=== PATIENT | female | born 2000 | race Caucasian/White ===

== ENCOUNTER 2018-10-18 18:46 | Outpatient (REF) | payer MEDICAID, SELFPAY ==
[2018-10-20 13:46] LABS: Chlamydia Result Negative; GC Result Negative; Specimen Description URINE
== END 2018-10-18 19:06 ==
LOC: LBN 18:46
PROVIDERS: PCP Family Medicine; Visit Provider Nurse Practitioner
DX: Z11.3 Encounter for screening for infections with a predominantly sexual mode of transmission (principal)
CPT/HCPCS: 87491; 87591

== ENCOUNTER 2019-05-02 19:46 | Outpatient (REF) | payer MEDICAID, SELFPAY ==
[2019-05-08 13:18] LABS: Chlamydia Result Negative (Negative); GC Result Negative (Negative)
== END 2019-05-02 20:06 ==
LOC: LBN 19:46
PROVIDERS: PCP Family Medicine; Visit Provider Family Medicine
DX: Z11.3 Encounter for screening for infections with a predominantly sexual mode of transmission (principal)
CPT/HCPCS: 87491; 87591

== ENCOUNTER 2020-01-11 02:00 | Outpatient (CLI) | payer MEDICAID, SELFPAY ==
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
== END 2020-01-11 02:20 ==
PROVIDERS: PCP Family Medicine; Visit Provider Physician Assistant
DX: M79.672 Pain in left foot (principal)
CPT/HCPCS: 73630

== ENCOUNTER 2020-08-13 18:29 | Emergency (ER) | payer MEDICAID, SELFPAY ==
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
[2020-08-13 18:34] VITALS: BP 122/68; PULSE 111; RESP 16; TEMP 36.8; O2SAT 92
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
[2020-08-13] MEDS: Acetaminophen 500 MG TAB 1000 MG PO (19:02)
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
[2020-08-13 19:49] VITALS: PULSE 91; O2SAT 96
== END 2020-08-13 19:50 | disposition home or self-care (01) ==
PROVIDERS: Emergency Provider Emergency Medicine; PCP Nurse Practitioner Family
DX: S09.8XXA Other specified injuries of head, initial encounter (principal); V89.2XXA Person injured in unspecified motor-vehicle accident, traffic, initial encounter
CPT/HCPCS: 99284; 70450; 99283

== ENCOUNTER 2020-10-07 03:53 | Outpatient (CLI) | payer OTHER, SELFPAY ==
[2020-10-07] MEDS: Albuterol HFA 18 GM 200 PUFF INH IH (14:22)
[2020-10-07] MEDS: Inhaler, Assist Device 1 EACH MC (14:23)
--- NOTE | 2020-10-07 16:50 | W.PFT ---
Date of service: 10/07/20 Time of Service: 13:05 Pulmonary Function Test Result There is no airflow limitation. There was significant bronchodilator response with a 12% increase in a 340 cc increase in FEV1 after administration of albuterol. This may represent asthma in the correct clinical situation. Clinical Correlation therefore is recommended.
== END 2020-10-07 03:54 | disposition home or self-care (01) ==
LOC: RT 03:53
PROVIDERS: PCP Nurse Practitioner Family; Visit Provider Pediatrics Pediatric Rheumatology
DX: Z02.71 Encounter for disability determination (principal)
CPT/HCPCS: 94060

== ENCOUNTER 2021-02-20 02:10 | Outpatient (CLI) | payer MEDICAID, SELFPAY ==
[2021-02-20 17:04] LABS: Kit/Specimen SENT
[2021-02-20 17:11] LABS: Abs Immature Grans 0.06 10^3/uL (0.0-0.06); Absolute Basophil Count 0.02 10^3/uL (0.0-0.2); Absolute Eosinophil Count 0.12 10^3/uL (0.0-0.7); Absolute Monocyte Count 0.76 10^3/uL (0.1-0.8); Basophils % 0.1; Eosinophils % 0.8; HCT 40.1 % (36.0-46.0); HGB 13.7 g/dL (11.2-15.7); Immature Grans % 0.4; Lymphocytes % 15.4; MCH 29.5 pg (27.0-33.0); MCHC 34.2 % (32.0-36.0); MCV 86.4 fL (80-95); Monocytes % 4.9; Neutrophils % 78.4; Nucleated RBC 0 %; Platelet Count 245 10^3/uL (130-400); RBC 4.64 10^6/uL (3.93-5.22); RDW 12.3 % (11.7-14.6)
[2021-02-20 17:19] LABS: Absolute Neutrophil Count 12.23 10^3/uL (1.2-6.7)
[2021-02-20 17:20] LABS: Glucose,1 Hr (Glucola) 112 mg/dL (80-140)
[2021-02-20 17:44] LABS: *AMPHETAMINES SCREEN URINE Negative (Negative); *BARBITURATES SCREEN URINE Negative (Negative); *BENZODIAZEPINES SCREEN URINE Negative (Negative); Cannabinoids THC Positive (Negative); Cocaine Screen,Urine Negative (Negative); METHADONE URINE SCREEN Negative (Negative); OPIATES URINE SCREEN Negative (Negative)
[2021-02-20 17:54] LABS: TSH (W/Ref FT4) 4.12 uIU/mL (0.36-3.74)
[2021-02-20 18:02] LABS: Tricyclic Antidepressants Negative (Negative)
[2021-02-20 21:17] LABS: FREE T4 1.08 ng/dL (0.76-1.46)
[2021-02-22 13:20] LABS: Syphilis Total Ab w/Reflex Nonreactive (Nonreactive)
[2021-02-24 09:23] LABS: Hepatitis B Surface Ag Negative (Negative)
[2021-02-24 09:54] LABS: HIV-1/2 Ag & Ab Screen Negative (Negative)
[2021-02-24 10:11] LABS: Hepatitis C Ab w Rflx HCV PCR Negative (Negative)
[2021-02-24 11:50] LABS: Rubella IgG Ab (UVM) Positive (See Note); Varicella IgG Antibody Negative (See Note)
[2021-02-24 14:34] LABS: Chlamydia Result Negative (Negative); GC Result Negative (Negative)
[2021-02-26 16:52] LABS: Result Summary NEGATIVE; Specimen WB Whole Blood
[2021-02-27 11:45] LABS: Buprenorphine Negative ng/mL (Cutoff: 5.0); Norbuprenorphine Negative ng/mL (Cutoff: 2.5)
== END 2021-02-20 02:11 | disposition home or self-care (01) ==
LOC: LBO 02:11
PROVIDERS: PCP Nurse Practitioner Family; Visit Provider Advanced Practice Midwife
DX: Z34.91 Encounter for supervision of normal pregnancy, unspecified, first trimester (principal)
CPT/HCPCS: 80307; 82950; 86787; 86803; 86850; 86900; 86901; 87340; 87389; 87491; 87591; 81220; 84439; 84443; 85025; 86762; 86780; 87086

== ENCOUNTER 2021-02-20 16:44 | Outpatient (REF) | payer MEDICAID, SELFPAY ==
--- NOTE | 2021-02-20 16:00 | PAPFT_PTH ---
PATIENT: Alexandra Adrian LOC: N U#:[id number] AGE/SX: 20/F ROOM: RE02/20/[address]: Mariana Grande CNM : 2000 BED: DIS: 02/20/2021 SPEC #: [id number] RECD: 02/20/21 17:14 STATUS: MIRA RAYGOZA #: [id number] JESSICA: 02/20/21 16:[address]: Mariana Grande [facility] Cytology RECD BY: Cindy Briseno ENTERED: 02/20/21 17:14 SP TYPE: PAPFT MARISELA DR: Rosie Pereira, STRETCHER HELPER Tissues: 1 - CX/ENDOCX FOR PAP SMEARS Procedures: PAP THIN PREP/UVM Screening Comments: [id number]
== END 2021-02-20 16:45 | disposition home or self-care (01) ==
LOC: LBN 16:44
PROVIDERS: PCP Nurse Practitioner Family; Visit Provider Advanced Practice Midwife
DX: Z12.4 Encounter for screening for malignant neoplasm of cervix (principal)
CPT/HCPCS: 88142

== ENCOUNTER 2021-04-10 01:19 | Outpatient (CLI) | payer MEDICAID, SELFPAY ==
--- NOTE | 2021-04-10 07:15 | DI.US_ITS ---
Exam(s) US OB 2-3 TRIMESTER EXAM: US OB 2-3 TRIMESTER CLINICAL HISTORY: targeted morphology screen,z34.90. TECHNIQUE: Transabdominal obstetrical ultrasound was performed. COMPARISON: None. This is the 1st ultrasound examination of this gestation our department. FINDINGS: There is a single viable intrauterine gestation with cardiac activity identified-144 bpm. Amniotic fluid: There is a normal amount of amniotic fluid. Placental location: The placenta is posterior grade 1,slightly low lying.Distance from the tip of rehana centa to the internal cervical os is 2.3 cm on today's study ANATOMY: A 3 vessel umbilical cord is seen. A four-chamber cardiac view was obtained. Right and left ventricular outflow tracts were imaged. There are no obvious abnormalities of the spinal column evident. There is no obvious abnormal ity of the anterior abdominal wall. stomach and urinary bladder are identified and there is no evidence of hydronephrosis. No abnormalities of the upper lip region are identified. No evidence of choroid plexus cysts i n the brain. Dating parameters place this at approximately 19 weeks and 5 days gestational age. BPD measures 20 weeks and 6 days HC measures 20 weeks and 5 days AC measures 18 weeks and 5 days FL measures 18 weeks and 5 days Estimated weight is 266 gm-0 pounds 9 ounces Fetus is at the 4th percentile on the Hadlock scale. IMPRESSION:: Single viable intrauterine gestation which is approximately 19 weeks and 5 days gestati onal age, implying an TOR of August 30, 2021. There are no obvious anomalies evident on today's study. However, fetus is at the 4th percentil e on the Hadlock scale and there is a 2 week discrepancy between head measurements and the AC/FL trino urements. Appropriate follow-up recommended. The placenta is posterior. This slightly low lying with distance of 2.3 cm between the tip of the pl acenta and the internal cervical os. No marginal previa. There is a normal amount of amniotic fluid . DATA REPOSITORY:
== END 2021-04-10 01:39 ==
PROVIDERS: PCP Nurse Practitioner Family; Visit Provider Advanced Practice Midwife
DX: Z34.92 Encounter for supervision of normal pregnancy, unspecified, second trimester (principal); Z3A.19 19 weeks gestation of pregnancy
CPT/HCPCS: 76805

== ENCOUNTER 2021-04-10 01:54 | Outpatient (CLI) | payer MEDICAID, SELFPAY ==
[2021-04-10 13:35] LABS: FREE T4 0.93 ng/dL (0.76-1.46)
[2021-04-10 22:20] LABS: Thyroperoxidase Antibody 36 U/mL (<=60)
== END 2021-04-10 01:55 | disposition home or self-care (01) ==
LOC: LBO 01:54
PROVIDERS: PCP Nurse Practitioner Family; Visit Provider Advanced Practice Midwife
DX: R79.89 Other specified abnormal findings of blood chemistry (principal)
CPT/HCPCS: 36415; 84439; 84443; 86376

== ENCOUNTER 2021-05-03 10:27 | Outpatient (CLI) | payer MEDICAID, SELFPAY ==
[2021-05-03 11:40] VITALS: BP 128/59; PULSE 86; TEMP 36.8
[2021-05-03 11:45] VITALS: BP 128/59; PULSE 86; TEMP 36.8
--- NOTE | 2021-05-03 21:17 | W.OBNST ---
Date of service: 05/03/21 Time of Service: 13:00 NST Evaluation Reason for NST Reasons for Nonstress Test: DECREASED MOVEMENT Gestational Age Gestational Age in Weeks and Days: 23 Weeks and 3Days Test and Monitor Explained Test/Monitor Explained: Test Explained, Monitor Explained and Patient Verbalized Understanding Vital Signs Blood Pressure: 128/59 Pulse: 86 Temperature: 98.2 F NST Information Date on Monitor: 05/03/21 Time on Monitor: 11:36 Date off Monitor: 05/03/21 Time off Monitor: 12:22 Total Time on Monitor: 46 NST Interventions: PO Hydration and Notify Provider Contraction Frequency: 0 NST Evaluation Patient States Movement: Present and Decreased FHR Baseline: 150 Variability: Moderate 6-25 bpm Accelerations: 10x10 Decelerations: None NST Results: Reactive Note NST Note Note: Tracing appropriate to 23 wk EGA, Pt much reassured, now feeling more movement D/c to home, keep next PN appt NST Reviewed and Verified by: Mariana Grande
[2021-05-03 21:19] VITALS: BP 128/59; PULSE 86; TEMP 36.8
== END 2021-05-03 12:25 | disposition home or self-care (01) ==
LOC: BCD 10:29 → OBS 11:14
PROVIDERS: PCP Nurse Practitioner Family; Visit Provider Advanced Practice Midwife
DX: O36.8120 Decreased fetal movements, second trimester, not applicable or unspecified (principal); Z3A.23 23 weeks gestation of pregnancy
CPT/HCPCS: 59025

== ENCOUNTER 2021-05-23 11:46 | Outpatient (CLI) | payer MEDICAID, SELFPAY ==
[2021-05-23] VITALS (14 sets, daily range): BP systolic 125; BP diastolic 56; PULSE 78–92; TEMP 36.9; O2SAT 87–100
[2021-05-23 14:23] LABS: Source Nasal/Nares
--- NOTE | 2021-05-23 14:43 | PGE_ITS ---
Date of Service Date of service: 05/23/21 Time of Service: 14:43 Assessment and Plan Assessment and plan (1) Asthma: Status: Chronic Assessment and plan: Pt being followed by pulmonology Seen by Dr. Darling 1 month ago F/up scheduled for next week Pt using albuterol and mometasone inhalers daily 1 ppd smoker, MJ user (2) : Status: Chronic Assessment and plan: 26 wks gestation, no labor, NST reactive wellbeing verified, no additional OB complaints (3) Respiratory abnormality: Status: Acute Assessment and plan: r/o COVID, swab pending Immediate increase in 02 sat with oxygen per mask from 91% to 99% Increased work of breathing observed with abnormal breath sounds Report to ED given by Willy Anthony Pt transferred to ED via w/c by nursing staff Subjective Subjective Patient reports: tolerating liquids well, nausea, vomiting (last vomited last ni ght), shortness of breath (pt states I just want to breathe) and afebrile Exam Narrative Exam Narrative: Obese woman in respiratory distress: increased work of breathing noted with extension of head, pursed lips, audible wheezing, rapid respiratory rate Const General: cooperative and in distress Nutritional Appearance: obese Orientation: alert, awake and oriented x3 HENMT Head: normal to inspection and normocephalic Neck Neck: full ROM Chest Chest: normal inspection of the chest Resp Effort & Inspection: abnormal respiratory pattern, audible wheezes, cough, labored, pursed lip breathing, respiratory distress and tachypneic Auscultation: rales, rhonchi and wheezes Cardio Rate: regular rate Rhythm: regular rhythm Heart Sounds: S1 normal and S2 normal GI Inspection: obesity Palpation: soft and other (gravid) Back/Spine/Pelvis Back: no CVA tenderness Skin General skin exam: elasticity normal Neuro Cognition: normal cognition Speech: speech normal Extrem General: normal to inspection Psych Appearance: grossly normal Speech and Movement: speech and movement normal Mood: anxious mood Affect: anxious affect Objective Last Vital Signs Pulse 84 05/23/21 14:41 BP 125/56 L 05/23/21 13:52 Pulse Ox 99 05/23/21 14:41 Laboratory Results - last 24 hr 05/23/21 13:38 COVID-19 Source Nasal/Nares Objective Narrative Objective Narrative: Pt presents to for NST due to decreased FM; Pt reporting nausea, vomiting, cough and SOB for 3 days though no vomiting since last night Arrives to as PUI, COVID swab sent to lab on arrival NST is reactive, pt unable to produce urine specimen Nursing finds increased work of breathing and notified this Provider Respiratory distress confirmed, Lung powell with rales, rhonchi, wheezing, 02 sat=91% on RA Pt self administered her albuterol inhaler 02 per mask applied with improved sat to 99% Discussed pt status with Dr. Aguilera Will transfer pt to ED
[2021-05-23 15:09] LABS: COVID-19 PCR Negative (Negative)
--- NOTE | 2021-06-04 17:37 | W.OBNST ---
Date of service: 05/23/21 Time of Service: 14:50 NST Evaluation Reason for NST Reasons for Nonstress Test: DECREASED MOVEMENT Gestational Age Gestational Age in Weeks and Days: 26 Weeks and 2Days Test and Monitor Explained Test/Monitor Explained: Test Explained, Monitor Explained and Patient Verbalized Understanding Vital Signs Blood Pressure: 125/56 Pulse: 88 Temperature: 98.4 F NST Information Date on Monitor: 05/23/21 Time on Monitor: 13:29 Date off Monitor: 05/23/21 Time off Monitor: 14:42 Total Time on Monitor: 73 NST Interventions: None NST Evaluation Patient States Movement: Absent FHR Baseline: 145 Variability: Moderate 6-25 bpm Accelerations: 15x15 Decelerations: None NST Results: Reactive Note NST Note Note: Pt developed increased work of breathing/asthma symptoms during NST process, transferred to ED when NST completed. NST Reviewed and Verified by: Mariana Grande
[2021-06-04 17:38] VITALS: BP 125/56; PULSE 88; TEMP 36.9
== END 2021-05-23 14:51 | disposition other institution (70) ==
LOC: BCD 11:48 → OBS 13:49
PROVIDERS: PCP Nurse Practitioner Family; Visit Provider Advanced Practice Midwife
DX: O99.512 Diseases of the respiratory system complicating pregnancy, second trimester (principal); Z20.822 Contact with and (suspected) exposure to COVID-19; Z3A.26 26 weeks gestation of pregnancy
CPT/HCPCS: 59025; 87635

== ENCOUNTER 2021-05-23 14:58 | Emergency (ER) | payer MEDICAID, SELFPAY ==
[2021-05-23] VITALS (120 sets, daily range): BP systolic 128–174; BP diastolic 44–107; PULSE 69–133; RESP 4–47; TEMP 36.6; O2SAT 86–99
--- NOTE | 2021-05-23 15:00 | RT.EKG_ITS ---
APPROVED REPORT Exam: Resting ECG Reason for Exam: tachypnea, sob Patient Location: E HR:95 bpm ECG Measurements Heart Rate 95 AXIS MA 132 P 40 QRSd 84 QRS 60 QT 411 T 49 QTc 517 Conclusion Sinus rhythm...normal P axis, V-rate 60- 99 Prolonged QT interval...QTc >495mS sinus rhythm, normal axis, t wave inversion V1 V2
[2021-05-23 15:24] LABS: BE (Venous) -2 mmol/L (-2-3); HCO3 (Venous) 23 mmol/L (23-28); O2 Sat (Venous) 77 %; TCO2 (Venous) 21 mmol/L (24-29); pCO2 (Venous) 38 mmHg (41-51); pH (Venous) 7.39 (7.31-7.41); pO2 (Venous) 43 mmHg
[2021-05-23 15:26] LABS: Abs Immature Grans 0.09 10^3/uL (0.0-0.06); Absolute Basophil Count 0.03 10^3/uL (0.0-0.2); Absolute Eosinophil Count 0.17 10^3/uL (0.0-0.7); Absolute Lymphocyte Count 1.57 10^3/uL (1.2-3.4); Absolute Monocyte Count 0.97 10^3/uL (0.1-0.8); Absolute Neutrophil Count 14.56 10^3/uL (1.2-6.7); Basophils % 0.2; HCT 39.4 % (36.0-46.0); HGB 13.6 g/dL (11.2-15.7); Immature Grans % 0.5; MCH 30.6 pg (27.0-33.0); MCHC 34.5 % (32.0-36.0); MCV 88.5 fL (80-95); MPV 12.1 fL (8.0-11.0); Monocytes % 5.6; Neutrophils % 83.7; Nucleated RBC 0 %; Platelet Count 290 10^3/uL (130-400); RBC 4.45 10^6/uL (3.93-5.22); RDW 12.2 % (11.7-14.6); RDW-SD 39.5 fL
[2021-05-23] MEDS: Dexamethasone 10 MG/ML VIAL IVP (15:40)
[2021-05-23] MEDS: Ipratropium 0.5 MG/2.5 ML UPD VIAL UPD (15:45)
[2021-05-23] MEDS: Levalbuterol 1.25 MG/3 ML UPD VIAL UPD ×2 (15:45→18:33)
[2021-05-23] MEDS: Levalbuterol 1.25 MG/3 ML UPD VIAL 2.5 MG UPD (15:45)
[2021-05-23] MEDS: Ipratropium 0.5 MG/2.5 ML UPD VIAL 1 MG UPD (15:45)
[2021-05-23 15:46] LABS: INR 0.9 (0.9-1.1); PTT Activated 26.3 sec (21.0-27.5); Prothrombin Time 9.3 sec (9.3-11.0)
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
[2021-05-23 15:51] LABS: ALT 31 U/L (14-59); AST 23 U/L (15-37); Albumin 2.9 g/dL (3.4-5.0); Alkaline Phosphatase 102 U/L (46-116); Anion Gap 11.6 mmol/L (3-11); BUN 6 mg/dL (7-18); Bilirubin, Total 0.4 mg/dL (0.2-1.0); CO2 22.4 mmol/L (21.0-32.0); CREATININE 0.7 mg/dL (0.55-1.02); Calcium 8.9 mg/dL (8.5-10.1); Chloride 104 mmol/L (98-107); Glucose 84 mg/dL (74-106); NT-proBNP 9 pg/mL (<300); Potassium 3.5 mmol/L (3.5-5.1); Sodium 138 mmol/L (136-145); Total Protein 7.4 g/dL (6.4-8.2); Troponin I < 50 ng/L (<or=60)
--- NOTE | 2021-05-23 18:50 | NUR.NOTE ---
Nursing Note: Pt reports that she wants to go home. notified.
== END 2021-05-23 19:40 | disposition left against medical advice (07) ==
PROVIDERS: Emergency Provider Emergency Medicine; PCP Nurse Practitioner Family
DX: O26.892 Other specified pregnancy related conditions, second trimester (principal); J45.901 Unspecified asthma with (acute) exacerbation; Z3A.27 27 weeks gestation of pregnancy; R09.02 Hypoxemia; O99.332 Smoking (tobacco) complicating pregnancy, second trimester; F17.210 Nicotine dependence, cigarettes, uncomplicated; R06.82 Tachypnea, not elsewhere classified
CPT/HCPCS: 80053; 82805; 86900; 86901; 93005; 94640; 96374; 99284; 83735; 83880; 84484; 85025; 85610; 85730; 93010; J1100; J7512; J7614; J7644

== ENCOUNTER 2021-06-05 20:39 | Outpatient (CLI) | payer MEDICAID, SELFPAY ==
[2021-06-05 15:06] LABS: HCT 40.1 % (36.0-46.0); HGB 13.9 g/dL (11.2-15.7); MCH 30.5 pg (27.0-33.0); MCHC 34.7 % (32.0-36.0); MCV 87.9 fL (80-95); MPV 12.5 fL (8.0-11.0); Platelet Count 214 10^3/uL (130-400); RBC 4.56 10^6/uL (3.93-5.22); RDW 12.1 % (11.7-14.6); RDW-SD 38.6 fL; WBC 16.87 10^3/uL (4.4-10.8)
[2021-06-05 15:07] LABS: Glucose,1 Hr (Glucola) 94 mg/dL (80-140)
== END 2021-06-05 20:40 | disposition home or self-care (01) ==
LOC: LBO 20:40
PROVIDERS: PCP Nurse Practitioner Family; Visit Provider Advanced Practice Midwife
DX: Z34.93 Encounter for supervision of normal pregnancy, unspecified, third trimester (principal)
CPT/HCPCS: 36415; 82950; 85027

== ENCOUNTER 2021-07-02 16:41 | Outpatient (REF) | payer MEDICAID, SELFPAY ==
[2021-07-02 17:52] LABS: *AMPHETAMINES SCREEN URINE Negative (Negative); *BARBITURATES SCREEN URINE Negative (Negative); *BENZODIAZEPINES SCREEN URINE Negative (Negative); Cannabinoids THC Positive (Negative); Cocaine Screen,Urine Negative (Negative); METHADONE URINE SCREEN Negative (Negative); OPIATES URINE SCREEN Negative (Negative); Tricyclic Antidepressants Negative (Negative)
[2021-07-09 10:55] LABS: Buprenorphine Negative ng/mL (Cutoff: 5.0)
== END 2021-07-02 16:42 | disposition home or self-care (01) ==
LOC: LBN 16:41
PROVIDERS: PCP Nurse Practitioner Family; Visit Provider Advanced Practice Midwife
DX: O99.323 Drug use complicating pregnancy, third trimester (principal); F12.90 Cannabis use, unspecified, uncomplicated; Z3A.32 32 weeks gestation of pregnancy
CPT/HCPCS: 80307

== ENCOUNTER 2021-07-03 01:41 | Outpatient (CLI) | payer MEDICAID, SELFPAY ==
--- NOTE | 2021-07-03 08:00 | DI.US_ITS ---
Exam(s) US OB CURTIS WEIGHT EXAM: US OB CURTIS WEIGHT CLINICAL HISTORY: growth abnormality,z34.90 TECHNIQUE: Ultrasound performed using standard protocol. COMPARISON: US US OB 2-3 TRIMESTER from 04/10/2021 FINDINGS: Ob ultrasound was performed utilizing 3rd trimester protocol. Placenta is posterior with no placenta previa. There is visually a normal quantity of amniotic fluid and the CURTIS is 16. biometry is consistent with gestational age of 33 weeks 4 days and EDC of August 17. Estimated weight is 2156 grams which is at the 75th percentile for predicted gestational age. Fetus is in cephalic presentation. heart rate was measured at 139 BPM. IMPRESSION: DATA REPOSITORY:
== END 2021-07-03 02:01 ==
PROVIDERS: PCP Nurse Practitioner Family; Visit Provider Advanced Practice Midwife
DX: Z34.93 Encounter for supervision of normal pregnancy, unspecified, third trimester (principal); Z3A.33 33 weeks gestation of pregnancy
CPT/HCPCS: 76816

== ENCOUNTER 2021-07-22 10:25 | Outpatient (CLI) | payer MEDICAID, SELFPAY ==
[2021-07-22 10:44] VITALS: BP 133/62; PULSE 94; TEMP 36.8
[2021-07-22 10:52] VITALS: BP 133/62; PULSE 94
--- NOTE | 2021-07-22 12:05 | PDOC.NST_ITS ---
Date of service: 07/22/21 Time of Service: 12:05 NST Evaluation Reason for NST Reasons for Nonstress Test: DECREASED MOVEMENT Gestational Age Gestational Age in Weeks and Days: 34 Weeks and 6Days Test and Monitor Explained Test/Monitor Explained: Test Explained, Monitor Explained and Patient Verbalized Understanding Vital Signs Blood Pressure: 133/62 Pulse: 94 Temperature: 98.2 F NST Information Date on Monitor: 07/22/21 Time on Monitor: 10:43 Date off Monitor: 07/22/21 Time off Monitor: 11:52 Total Time on Monitor: 69 NST Interventions: PO Hydration NST Evaluation Patient States Movement: Present FHR Baseline: 125 Variability: Moderate 6-25 bpm Accelerations: 15x15 Decelerations: Variable NST Results: Reactive Note NST Note Note: Alexandra has noticed decreased movement today. She also reports mild cramping. She had last eaten and had something to drink at 0600. Baby was active during exam with category 1 tracing. kick counting and signs of labor discussed. Alexandra met with Vonda Jo today to discuss problems she is having with RCT transportation. Follow up with visit and US 08/30 at [facility] NST Reviewed and Verified by: Dipti Veras
[2021-07-22 12:08] VITALS: BP 133/62; PULSE 94; TEMP 36.8
== END 2021-07-22 11:55 | disposition home or self-care (01) ==
LOC: BCD 10:28 → OBS 10:39
PROVIDERS: PCP Nurse Practitioner Family; Visit Provider Advanced Practice Midwife
DX: O36.8130 Decreased fetal movements, third trimester, not applicable or unspecified (principal); Z3A.34 34 weeks gestation of pregnancy
CPT/HCPCS: 59025

== ENCOUNTER 2021-07-30 00:22 | Outpatient (CLI) | payer MEDICAID, SELFPAY ==
--- NOTE | 2021-07-30 08:00 | DI.US_ITS ---
Exam(s) US OB CURTIS WEIGHT EXAM: US OB CURTIS WEIGHT CLINICAL HISTORY: interval growth,e66.9,z34.90. TECHNIQUE: Transabdominal obstetrical ultrasound performed. COMPARISON: US US OB 2-3 TRIMESTER from 04/10/2021 US US OB CURTIS WEIGHT from 07/03/2021 FINDINGS:: Number of fetuses: One. position: Vertex. Placental location: Posterior. No evidence of previa. BIOMETRIC DATA: BPD: 91mm = 36+ 5 weeks HC: 332mm = 37+ 6 weeks AC: 326mm = 36+ 3 weeks FL: 72 mm = 36+ 5 weeks EFW: 3018 Gms = 72% Composite Age: 37+ 0 weeks EDC: 20 August 2021 Heart Rate: 153 BPM Amniotic fluid index: 18.4 cm. Amount of fluid is within normal limits. IMPRESSION: size and weight are within the expected range. DATA REPOSITORY:
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
[2021-09-01 08:05] VITALS: BP 148/72; PULSE 14; TEMP 36.9
[2021-09-01 08:47] VITALS: BP 148/72; PULSE 92
[2021-09-01 09:29] LABS: ROM Plus Negative
--- NOTE | 2021-09-01 10:01 | W.OBNST ---
Date of service: 09/01/21 Time of Service: 10:02 NST Evaluation Reason for NST Reasons for Nonstress Test: POSTDATES Gestational Age Gestational Age in Weeks and Days: 40 Weeks and 5Days Test and Monitor Explained Test/Monitor Explained: Test Explained, Monitor Explained and Patient Verbalized Understanding Vital Signs Blood Pressure: 148/72 Pulse: 14 Temperature: 98.4 F NST Information Date on Monitor: 09/01/21 Time on Monitor: 08:05 Date off Monitor: 09/01/21 Time off Monitor: 09:42 Total Time on Monitor: 97 NST Interventions: None NST Evaluation Patient States Movement: Present FHR Baseline: 125 Variability: Moderate 6-25 bpm Accelerations: 15x15 Decelerations: None NST Results: Reactive Note NST Note Note: Alexandra had been schedule for cervical ripening today. Upon her arrival, she stated that she wished to come in Wednesday for induction as she prefers to await spontaneous labor as long as she can. She requested a cervical exam as she reported that she has been having intermittent contractions all weekend. She also reported that she has been feeling wetness in the evenings x 2 days. ROM plus was taken and was negative. SVE performed. Cervix 1/ 70/-1 posterior and soft with a Bishops score of 7. I reviewed the risk factors present including asthma history and elevated BMI. Alexandra verbalized understanding and said she feels strongly about waiting until Wednesday for induction of labor. We reviewed cervical ripening methods. I consulted with Drs. Anderson and Luis M regarding Alexandra's wish to wait until Wednesday and they are in agreement. She was scheduled for 09/03 at 1100. NST Reviewed and Verified by: Dipti Veras
[2021-09-01 10:07] VITALS: BP 148/72; PULSE 14; TEMP 36.9
== END 2021-09-01 09:45 | disposition home or self-care (01) ==
LOC: DI 00:24 → OBS 09-01 08:09
PROVIDERS: Advanced Practice Midwife; PCP Nurse Practitioner Family; Visit Provider Advanced Practice Midwife
DX: O99.333 Smoking (tobacco) complicating pregnancy, third trimester (principal); O99.323 Drug use complicating pregnancy, third trimester; O99.213 Obesity complicating pregnancy, third trimester; Z3A.37 37 weeks gestation of pregnancy
CPT/HCPCS: 76816; 84112

== ENCOUNTER 2021-07-30 17:30 | Outpatient (REF) | payer MEDICAID, SELFPAY ==
[2021-07-30 18:54] LABS: *AMPHETAMINES SCREEN URINE Negative (Negative); *BARBITURATES SCREEN URINE Negative (Negative); *BENZODIAZEPINES SCREEN URINE Negative (Negative); Cannabinoids THC Positive (Negative); Cocaine Screen,Urine Negative (Negative); METHADONE URINE SCREEN Negative (Negative); OPIATES URINE SCREEN Negative (Negative)
[2021-07-30 19:00] LABS: Tricyclic Antidepressants Negative (Negative)
[2021-08-05 15:08] LABS: Buprenorphine Negative ng/mL (Cutoff: 5.0); Norbuprenorphine Negative ng/mL (Cutoff: 2.5)
== END 2021-07-30 17:31 | disposition home or self-care (01) ==
LOC: LBN 17:30
PROVIDERS: PCP Nurse Practitioner Family; Visit Provider Advanced Practice Midwife
DX: Z34.93 Encounter for supervision of normal pregnancy, unspecified, third trimester (principal); Z36.85 Encounter for antenatal screening for Streptococcus B; Z3A.36 36 weeks gestation of pregnancy
CPT/HCPCS: 80307; 87081

== ENCOUNTER 2021-08-30 16:38 | Observation (INO) | payer MEDICAID, SELFPAY ==
[2021-08-30] VITALS (14 sets, daily range): BP systolic 134; BP diastolic 82; PULSE 86–106; RESP 20; TEMP 37; O2SAT 92–95
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
--- NOTE | 2021-08-30 19:40 | W.OBNST ---
Date of service: 08/30/21 Time of Service: 19:40 NST Evaluation Reason for NST Reasons for Nonstress Test: DECREASED MOVEMENT Gestational Age Gestational Age in Weeks and Days: 40 Weeks and 3Days Test and Monitor Explained Test/Monitor Explained: Test Explained Vital Signs Blood Pressure: 134/82 Pulse: 103 Temperature: 98.6 F NST Information Date on Monitor: 08/30/21 Time on Monitor: 16:45 Date off Monitor: 08/30/21 Time off Monitor: 17:30 Total Time on Monitor: 45 NST Interventions: PO Hydration Contraction Frequency: irregular, mild NST Evaluation Patient States Movement: Present FHR Baseline: 145 Variability: Moderate 6-25 bpm Accelerations: 15x15 Decelerations: None NST Results: Reactive Note NST Note NST Reviewed and Verified by: Mariana Grande
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
== END 2021-08-30 19:30 | disposition home or self-care (01) ==
PROVIDERS: Admitting Provider Advanced Practice Midwife; PCP Nurse Practitioner Family; Visit Provider Advanced Practice Midwife
DX: O99.820 Streptococcus B carrier state complicating pregnancy (principal); O48.0 Post-term pregnancy; Z3A.40 40 weeks gestation of pregnancy; O99.513 Diseases of the respiratory system complicating pregnancy, third trimester; O99.210 Obesity complicating pregnancy, unspecified trimester; E66.9 Obesity, unspecified; O99.333 Smoking (tobacco) complicating pregnancy, third trimester; F17.290 Nicotine dependence, other tobacco product, uncomplicated; O99.323 Drug use complicating pregnancy, third trimester; F12.90 Cannabis use, unspecified, uncomplicated; J45.909 Unspecified asthma, uncomplicated; F41.0 Panic disorder [episodic paroxysmal anxiety]; O99.343 Other mental disorders complicating pregnancy, third trimester; F32.9 Major depressive disorder, single episode, unspecified
CPT/HCPCS: 59025

== ENCOUNTER 2021-09-01 08:13 | Outpatient (CLI) | payer MEDICAID, SELFPAY | END 2021-09-01 08:14 | disposition home or self-care (01) | LOC: BCD 08:13 | PROVIDERS: PCP Nurse Practitioner Family; Visit Provider Advanced Practice Midwife | DX: O48.0 Post-term pregnancy (principal); Z3A.40 40 weeks gestation of pregnancy | CPT/HCPCS: 59025 ==

== ENCOUNTER 2021-09-03 13:05 | Inpatient (IN) | payer MEDICAID, SELFPAY ==
[2021-09-03] VITALS (45 sets, daily range): BP systolic 144–160; BP diastolic 74–107; PULSE 67–120; RESP 4–18; TEMP 36.5–36.8; O2SAT 94–100; BMI 44.7
[2021-09-03 13:07] LABS: Source Nasal/Nares
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
[2021-09-03 13:25] LABS: HCT 44.8 % (36.0-46.0); HGB 15.4 g/dL (11.2-15.7); MCHC 34.4 % (32.0-36.0); MCV 87 fL (80-95); MPV 13.3 fL (8.0-11.0); Platelet Count 215 10^3/uL (130-400); RBC 5.14 10^6/uL (3.93-5.22); RDW 11.8 % (11.7-14.6); RDW-SD 37.9 fL
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
[2021-09-03] MEDS: Lactated Ringers 500 ML 999 ML IV (14:32)
[2021-09-03] MEDS: Penicillin G POT. 5,000,000 UNITS in Normal Saline 100 ML 200 UNITS IVPB (14:46)
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
[2021-09-03] MEDS: Normal Saline Flush 10 ML SYR (15:40)
[2021-09-03] MEDS: methylPREDNISolone SUCC 125 MG VIAL IVP (15:41)
[2021-09-03 15:54] LABS: COVID-19 PCR Negative (Negative)
--- NOTE | 2021-09-03 16:03 | PDOC.ANES ---
Date of service: 09/03/21 Time of Service: 16:03 Anesthesia Note Report Anesthesia Note: Attempted epidural placement by Alexandra Carias CRNA and Rommel Morris CRNA unsuccessful. Attempt x3 interspaces by each provider. Use of ultrasound without success. Patient was understanding of difficulty with epidural and further plan discussed with Penelope Grande CNM and Dr. Asencio. Will discuss labor plan with patient and possible transfer to tertiary care center.
[2021-09-03] MEDS: Albuterol/Ipratropium 3 ML UPD VIAL UPD (16:15)
[2021-09-03] MEDS: Budesonide/Formoterol 160/4.5 6 GM 60 PUFF INH IH (16:17)
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
--- NOTE | 2021-09-03 17:53 | NUR.NOTE ---
09/03/21 17:50 Vanesa Webb from [facility] called to get report on patient. Primary nurse had left with transfer unit. This nurse gave report to [facility] at this time.
--- NOTE | 2021-11-19 16:16 | PDOC.ANES ---
Date of service: 11/19/21 Time of Service: 16:16 Anesthesia Note Report Anesthesia Note: I was asked to speak with Alexandra about her back pain. Alexandra was seen in August and requested a labor epidural. She received multiple attempts by two providers without successful placement. She was transferred to [facility] for this and other reasons. [facility] was able to place an epidural but this reportedly did not work well. She went to which was completed using general anesthesia. She went home and 6 weeks later began having this lower back pain in the L3/L4 region. She states she has severe lower back pain that begins where the epidural attempt was and radiates laterally to her sides bilaterally. This is sharp in nature and usually lasts 1-2 hours before subsiding on its own. Onset can be at rest or while doing activity. She recently was seen in the [facility] ED for this and was given toradol and norflex which seemed to help. This was felt to be musculoskeletal at the time. Today she has the same complaint at her appointment and I was asked to evaluate this. This complaint seems to be isolated to the above description with no radiation/motor/sensory abnormality into lower extremities. No bowel/bladder abnormalities reported when asked. Her back on exam appears atraumatic and she is not having the discomfort right now. This seems to be an odd presentation to occur 6 weeks after labor and be epidural related, but it seems to make sense to complete a lumbar CT without contrast to be prudent. This will be scheduled and plan made after results received. Pt. is on board with this plan.
== END 2021-09-03 17:40 | disposition short-term general hospital (02) | DRG 832 ==
PROVIDERS: Admitting Provider Advanced Practice Midwife; PCP Nurse Practitioner Family; Visit Provider Advanced Practice Midwife
DX: O48.0 Post-term pregnancy (principal); J45.901 Unspecified asthma with (acute) exacerbation; O99.323 Drug use complicating pregnancy, third trimester; O99.513 Diseases of the respiratory system complicating pregnancy, third trimester; Z3A.41 41 weeks gestation of pregnancy; F17.210 Nicotine dependence, cigarettes, uncomplicated; F12.90 Cannabis use, unspecified, uncomplicated; Z91.14 Patient's other noncompliance with medication regimen; F41.1 Generalized anxiety disorder; O99.343 Other mental disorders complicating pregnancy, third trimester; O99.333 Smoking (tobacco) complicating pregnancy, third trimester; O99.820 Streptococcus B carrier state complicating pregnancy
CPT/HCPCS: 85027; 86850; 86900; 86901; 87635; 94640; 94664; G0378; J2540; J2930; J7620

== ENCOUNTER 2021-11-17 20:42 | Emergency (ER) | payer MEDICAID, SELFPAY ==
[2021-11-17 20:47] VITALS: BP 120/67; PULSE 58; RESP 18; TEMP 36.8; O2SAT 98
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
[2021-11-17 21:50] LABS: Abs Immature Grans 0.03 10^3/uL (0.0-0.06); Absolute Basophil Count 0.05 10^3/uL (0.0-0.2); Absolute Eosinophil Count 0.41 10^3/uL (0.0-0.7); Absolute Lymphocyte Count 1.71 10^3/uL (1.2-3.4); Absolute Monocyte Count 0.46 10^3/uL (0.1-0.8); Absolute Neutrophil Count 8.68 10^3/uL (1.2-6.7); Basophils % 0.4; Eosinophils % 3.6; HCT 44.4 % (36.0-46.0); HGB 15.1 g/dL (11.2-15.7); Immature Grans % 0.3; Lymphocytes % 15.1; MCV 88 fL (80-95); MPV 12.4 fL (8.0-11.0); Monocytes % 4.1; Neutrophils % 76.5; Platelet Count 249 10^3/uL (130-400); RBC 5.04 10^6/uL (3.93-5.22); RDW 12.2 % (11.7-14.6); RDW-SD 39.9 fL; WBC 11.34 10^3/uL (4.4-10.8)
[2021-11-17] MEDS: Ketorolac 30 MG/ML VIAL IVP (21:56)
[2021-11-17] MEDS: Orphenadrine 60 MG/2 ML VIAL IVP (21:56)
[2021-11-17 22:14] LABS: ALT 32 U/L (14-59); AST 37 U/L (15-37); Albumin 3.7 g/dL (3.4-5.0); Alkaline Phosphatase 82 U/L (46-116); Anion Gap 8.3 mmol/L (3-11); BUN 15 mg/dL (7-18); Bilirubin, Total 0.5 mg/dL (0.2-1.0); CO2 27.7 mmol/L (21.0-32.0); Calcium 8.4 mg/dL (8.5-10.1); Chloride 106 mmol/L (98-107); Estimated GFR 81.18 (mL/min/1.73m2); Glucose 102 mg/dL (74-106); Lipase 99 U/L (73-393); Potassium 3.7 mmol/L (3.5-5.1); Sodium 142 mmol/L (136-145); Total Protein 7.7 g/dL (6.4-8.2)
[2021-11-17 22:25] VITALS: BP 119/78; PULSE 87; RESP 12; O2SAT 93
[2021-11-17 22:46] VITALS: BP 119/78; PULSE 87; RESP 12; O2SAT 93
[2021-11-17] MEDS: Cyclobenzaprine 10 MG TAB, 3 TABS/BTL PO (22:46)
== END 2021-11-17 23:08 | disposition home or self-care (01) ==
PROVIDERS: Emergency Provider Physician Assistant; PCP Nurse Practitioner Family
DX: M54.50 Low back pain, unspecified (principal); G89.29 Other chronic pain; D72.829 Elevated white blood cell count, unspecified; J45.909 Unspecified asthma, uncomplicated; F17.210 Nicotine dependence, cigarettes, uncomplicated; Z79.51 Long term (current) use of inhaled steroids
CPT/HCPCS: 80053; 83690; 96374; 96375; 99284; J2360; 85025; J1885; J3490

== ENCOUNTER 2021-11-26 18:00 | Emergency (ER) | payer MEDICAID, SELFPAY ==
[2021-11-26 18:08] VITALS: BP 118/56; PULSE 86; RESP 14; TEMP 35.9; O2SAT 95
--- NOTE | 2021-11-26 18:30 | DI.CT_ITS ---
Exam(s) CT ABDOMEN PELVIS W EXAM: CT ABDOMEN PELVIS W CLINICAL HISTORY: jaundiced, post , epigastric abdominal pain TECHNIQUE: Imaging Protocol: Axial computed tomography images with coronal and sagittal reformatted images were created and reviewed CONTRAST MATERIAL: Intravenous: Omnipaque 350 Contrast volume:100 mL Oral: No COMPARISON: No exams were available for comparison FINDINGS: ABDOMEN: Lung Bases: Normal where visualized. Liver: Normal density. No measurable mass. Portal, Superior Mesenteric, and Splenic Veins: Unremarkable. Gallbladder and Biliary Tract: There is moderate extra and intrahepatic biliary ductal dilatation to the level of the ampulla. The common bile duct measures up to 1.4 cm in diameter. No definite stone or lesion is seen in the duct or pancreas. There is layering debris seen within the gallbladder. Pancreas: Normal density, no abnormal calcifications or inflammatory process. Spleen: Normal. Adrenals: No masses seen. Kidneys: Normal size, contour and axis. No radiodense stones or obstructive uropathy. There are tiny hypodensities in both kidneys. They are too small for further characterization but likely reflect sm all cysts. Abdominal Aorta: Abdominal portion non-dilated. Bowel: No obstruction or bowel wall thickening. Appendix is unremarkable. Peritoneal Cavity: No ascites, collection or mesenteric inflammatory response. No free air. Lymph Nodes: Within normal limits. Bones: Within normal limits for the patient's age. Soft Tissues: Unremarkable. PELVIS: Bladder: Symmetric distention, no gross wall thickening. Reproductive Organs: There is a 3.6 cm left adnexal cyst likely ovarian. No further imaging is recom mended. (Reference: Acosta et al, 2020). Reproductive organs are otherwise unremarkable. Lymph Nodes: Within normal limits. Bones: Within normal limits for the patient's age. IMPRESSION: 1. The gallbladder is mildly distended containing layering debris which may be sludge or stones. Acu te cholecystitis cannot be excluded. Ultrasound should be obtained for further evaluation. 2. Moderate intra and extrahepatic biliary ductal dilatation to the level of the ampulla without a de fined stone or lesion. Further evaluation with ERCP/MRCP should be considered. 3. RADIATION DOSE DELIVERED: 942.04mGy.cm Total DLP DATA REPOSITORY: All CT scans at this facility are submitted to the National Radiology Data Registry (NRDR) Dose Index Registry (DIR) with the [employer] (ACR). RADIATION OPTIMIZATION: All CT scans at this facility use at least one of these dose optimization te chniques: automated exposure control; mA and/or kV adjustment per patient size (includes targeted exa ms where dose is matched to clinical indication); or iterative reconstruction.
[2021-11-26 18:36] VITALS: RESP 14
[2021-11-26 18:51] LABS: Bilirubin Color Interference (Negative); Clarity Sl Cloudy (Clear); Glucose Color Interference mg/dL (Negative); Ketones Color Interference mg/dL (Negative); Leukocyte Esterase Color Interference (Negative); Nitrite Color Interference (Negative); Specific Gravity 1.037 (1.005-1.025); Urobilinogen Color Interference EU/dL (Up TO 0.2)
[2021-11-26 18:52] LABS: Blood Color Interference (Negative)
[2021-11-26] MEDS: Normal Saline 1,000 ML 1000 ML IV (18:54)
[2021-11-26 19:00] LABS: Epithelial Cells Many HPF (Negative)
[2021-11-26 19:01] LABS: Bacteria Few HPF (Negative); C & S Indicated? No/Sq. Contamination; Casts Negative LPF (Negative); Crystals Few Amorphous HPF (Negative); Mucus Negative (Negative)
[2021-11-26 19:04] LABS: Source Nasal/Nares
[2021-11-26 19:07] LABS: Abs Immature Grans 0.02 10^3/uL (0.0-0.06); Absolute Basophil Count 0.03 10^3/uL (0.0-0.2); Absolute Eosinophil Count 0.31 10^3/uL (0.0-0.7); Absolute Lymphocyte Count 2.07 10^3/uL (1.2-3.4); Absolute Monocyte Count 0.47 10^3/uL (0.1-0.8); Absolute Neutrophil Count 6.01 10^3/uL (1.2-6.7); Basophils % 0.3; Eosinophils % 3.5; HCT 44.8 % (36.0-46.0); HGB 15.2 g/dL (11.2-15.7); Immature Grans % 0.2; Lymphocytes % 23.2; MCH 28.8 pg (27.0-33.0); MCHC 33.9 % (32.0-36.0); MCV 85 fL (80-95); Monocytes % 5.3; Neutrophils % 67.5; Platelet Count 258 10^3/uL (130-400); RBC 5.27 10^6/uL (3.93-5.22); RDW 12.9 % (11.7-14.6); RDW-SD 39.8 fL; WBC 8.91 10^3/uL (4.4-10.8)
[2021-11-26 19:22] LABS: Prothrombin Time 9.6 sec (9.3-11.0)
[2021-11-26 19:26] LABS: ALT 414 U/L (14-59); AST 241 U/L (15-37); Albumin 3.4 g/dL (3.4-5.0); Alkaline Phosphatase 379 U/L (46-116); Anion Gap 8.1 mmol/L (3-11); BUN 12 mg/dL (7-18); Bilirubin, Direct 6.9 mg/dL (0.0-0.2); Bilirubin, Total 8.4 mg/dL (0.2-1.0); CO2 27.9 mmol/L (21.0-32.0); Calcium 8.8 mg/dL (8.5-10.1); Chloride 105 mmol/L (98-107); Estimated GFR 81.18 (mL/min/1.73m2); Glucose 121 mg/dL (74-106); Potassium 3.1 mmol/L (3.5-5.1); Sodium 141 mmol/L (136-145); Total Protein 7.6 g/dL (6.4-8.2)
[2021-11-26 19:29] LABS: Creatine Kinase 70 U/L (26-192); Lipase 53 U/L (73-393)
[2021-11-26] MEDS: Omnipaque 350 MG/ML 100 ML BTL IJ (19:30)
[2021-11-26 19:35] VITALS: BP 99/54; PULSE 74; RESP 14; O2SAT 95
[2021-11-26 20:03] LABS: COVID-19 PCR POSITIVE (Negative)
--- NOTE | 2021-11-26 20:35 | DI.VRAD_ITS ---
PROCEDURE INFORMATION: Exam: CT Abdomen And Pelvis With Contrast Exam date and time: 11/26/2021 7:50 PM Age: 21 years old Clinical indication: Other: Jaundiced, post , epigastric abdominal pain TECHNIQUE: Imaging protocol: Computed tomography of the abdomen and pelvis with contrast. Radiation optimization: All CT scans at this facility use at least one of these dose optimization techniques: automated exposure control; mA and/or kV adjustment per patient size (includes targeted exams where dose is matched to clinical indication); or iterative reconstruction. Contrast material: OMNI 350; Contrast volume: 100 ml; Contrast route: INTRAVENOUS (IV); COMPARISON: None. FINDINGS: Liver: Normal. No mass. Gallbladder and bile ducts: There is moderate intra and extrahepatic biliary ductal dilatation to the level of the ampulla. The common bile duct measures up to 1.4 cm diameter. There is normal tapering of the distal common bile duct at the level of the ampulla. No defined common bile duct stone or lesion is identified. The gallbladder appears mildly distended and contains layering soft tissue density material, suggesting sludge. Cannot exclude radiolucent gallstones. Findings suggest a small region of pericholecystic fluid around image 36, series 2. The gallbladder wall is not clearly thickened. Pancreas: Normal. No ductal dilation. Spleen: The spleen has a length of 12.5 cm consistent with borderline splenomegaly. Adrenal glands: Normal. No mass. Kidneys and ureters: Normal. No hydronephrosis. Stomach and bowel: Unremarkable. No obstruction. No mucosal thickening. Appendix: The appendix is visualized and appears normal. Intraperitoneal space: There is no evidence of free intraperitoneal fluid. There is no free intraperitoneal air. Vasculature: Unremarkable. No abdominal aortic aneurysm. Lymph nodes: Unremarkable. No enlarged lymph nodes. Urinary bladder: Unremarkable as visualized. Reproductive: There is a 3.7 x 3.8 cm simple appearing left adnexal cyst on image 67, series 2. Bones/joints: Unremarkable. No acute fracture. Soft tissues: There appears to be a transverse scar within the anterior abdominal wall anterior to the lower pelvis, likely from prior section. No focal fluid collection is identified. IMPRESSION: 1. Gallbladder is mildly distended and contains sludge and possible radiolucent gallstones. There may be a tiny amount of pericholecystic fluid, which is a nonspecific finding. The gallbladder wall is not clearly thickened. If acute cholecystitis is clinically suspected, further evaluation with right upper quadrant ultrasound could be obtained. 2. Moderate intrahepatic and extrahepatic biliary ductal dilatation to the level of the ampulla. There is no defined stone or lesion in the region of the ampulla. Findings could represent ampullary stenosis or sphincter of Oddi dysfunction. However, a lucent distal common bile duct stone cannot be entirely excluded on this exam. Further evaluation with ERCP or MRCP should be considered. 3. Simple appearing 3.7 x 3.8 cm left adnexal cyst. No further imaging is recommended. (Reference: Dave) REFERENCES: Dave et al. Management of Incidental Adnexal Findings on CT and MRI: A White Paper of the ACR Incidental Findings Committee, J Am Gopi Radiol. 2019;17(2):248-254. Dictated and Authenticated by: Chito Alvarado MD. Ordering:JARROD White MD
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
[2021-11-28 09:54] LABS: Hepatitis A Antibody IgM Negative (Negative); Hepatitis B Core Antibody Negative (Negative); Hepatitis B surface Ag Negative (Negative); Hepatitis C Ab w Rflx HCV PCR Negative (Negative)
== END 2021-11-26 21:34 | disposition left against medical advice (07) ==
PROVIDERS: Emergency Provider Physician Assistant; PCP Nurse Practitioner Family
DX: K75.9 Inflammatory liver disease, unspecified (principal); E80.6 Other disorders of bilirubin metabolism; U07.1 COVID-19; K83.8 Other specified diseases of biliary tract; F17.210 Nicotine dependence, cigarettes, uncomplicated; Z53.20 Procedure and treatment not carried out because of patient's decision for unspecified reasons
CPT/HCPCS: 36415; 80053; 82550; 83690; 86704; 86709; 86803; 87340; 87635; 96360; 99285; 74177; 81003; 81015; 82248; 85025; 85610; 99284; J3490

== ENCOUNTER 2021-12-02 07:55 | Outpatient (CLI) | payer MEDICAID, SELFPAY ==
--- NOTE | 2021-12-01 11:42 | DI.CT_ITS ---
Exam(s) CT LUMBAR SPINE RECONS EXAM: CT LUMBAR SPINE RECONS CLINICAL HISTORY: s/p epidural 2 months ago. TECHNIQUE: Imaging Protocol: Axial, coronal and sagittal images were reconstructed from the abdomen and pelvic CT of 26 November 2021. CONTRAST MATERIAL: Intravenous: Omnipaque 350 Contrast volume:structured data in ml Oral: / no COMPARISON: CT abdomen pelvis 26 November 2021. FINDINGS: Bones: The last intervertebral disc space is designated the L5/S1 level for the numbering purpose of this examination. The vertebral body heights are well maintained. Alignment is satisfactory. No frac ture is seen. T12-L1: No disc herniations or bulges are present. L1-2: No disc herniations or bulges are present. L2-3: No disc herniations or bulges are present. L3-4: No disc herniations or bulges are present. L4-5: No disc herniations or bulges are present. L5-S1: No disc herniations or bulges are present. Soft Tissues: The visualized SI joints and sacrum are will maintained. The paraspinal soft tissues a re unremarkable. IMPRESSION: Normal CT examination of the lumbar spine. RADIATION DOSE DELIVERED: Total DLP DATA REPOSITORY: All CT scans at this facility are submitted to the National Radiology Data Registry (NRDR) Dose Index Registry (DIR) with the [employer] (A[employer]). RADIATION OPTIMIZATION: All CT scans at this facility use at least one of these dose optimization te chniques: automated exposure control; mA and/or kV adjustment per patient size (includes targeted exa ms where dose is matched to clinical indication); or iterative reconstruction.
== END 2021-12-02 08:15 ==
LOC: DI 07:56
PROVIDERS: PCP Nurse Practitioner Family; Visit Provider Advanced Practice Midwife
DX: M54.50 Low back pain, unspecified (principal)

== ENCOUNTER 2022-08-14 08:25 | Outpatient (REF) | payer MEDICAID, SELFPAY ==
[2022-08-17 13:08] LABS: Chlamydia Result Negative (Negative); GC Result Negative (Negative)
== END 2022-08-14 08:26 | disposition home or self-care (01) ==
LOC: LBN 08:25
PROVIDERS: PCP Nurse Practitioner Family; Visit Provider Nurse Practitioner Family
DX: Z11.3 Encounter for screening for infections with a predominantly sexual mode of transmission (principal)
CPT/HCPCS: 87491; 87591

== ENCOUNTER 2022-10-27 11:43 | Outpatient (REF) | payer MEDICAID, SELFPAY ==
[2022-10-28 12:29] LABS: Chlamydia Result Negative (Negative); GC Result Negative (Negative)
== END 2022-10-27 11:44 | disposition home or self-care (01) ==
LOC: LBN 11:43
PROVIDERS: PCP Nurse Practitioner Family; Visit Provider Advanced Practice Midwife
DX: N76.2 Acute vulvitis (principal); Z11.3 Encounter for screening for infections with a predominantly sexual mode of transmission
CPT/HCPCS: 87491; 87591; 87480; 87510; 87660

== ENCOUNTER 2022-12-15 16:29 | Outpatient (CLI) | payer MEDICAID, SELFPAY ==
[2022-12-15 10:56] LABS: Panorama Kit Sent via Fed Ex
[2022-12-15 10:59] LABS: Abs Immature Grans 0.06 10^3/uL (0.0-0.06); Absolute Basophil Count 0.06 10^3/uL (0.0-0.2); Absolute Eosinophil Count 0.17 10^3/uL (0.0-0.7); Absolute Lymphocyte Count 2.59 10^3/uL (1.2-3.4); Absolute Monocyte Count 0.85 10^3/uL (0.1-0.8); Absolute Neutrophil Count 10.15 10^3/uL (1.2-6.7); Basophils % 0.4; Eosinophils % 1.2; HCT 42.3 % (36.0-46.0); HGB 14.5 g/dL (11.2-15.7); Immature Grans % 0.4; Lymphocytes % 18.7; MCH 28.8 pg (27.0-33.0); MCHC 34.3 % (32.0-36.0); MCV 84 fL (80-95); MPV 11.8 fL (8.0-11.0); Monocytes % 6.1; Neutrophils % 73.2; Platelet Count 265 10^3/uL (130-400); RBC 5.03 10^6/uL (3.93-5.22); RDW-SD 39.7 fL; WBC 13.87 10^3/uL (4.4-10.8)
[2022-12-15 11:12] LABS: *AMPHETAMINES SCREEN URINE Negative (Negative); *BARBITURATES SCREEN URINE Negative (Negative); *BENZODIAZEPINES SCREEN URINE Negative (Negative); Cannabinoids THC Positive (Negative); Cocaine Screen,Urine Negative (Negative); METHADONE URINE SCREEN Negative (Negative); OPIATES URINE SCREEN Negative (Negative)
[2022-12-15 11:13] LABS: Tricyclic Antidepressants Negative (Negative)
[2022-12-15 11:15] LABS: Glucose,1 Hr (Glucola) 85 mg/dL (80-140)
[2022-12-15 11:21] LABS: ALT 22 U/L (14-59); AST 11 U/L (15-37); Albumin 3.4 g/dL (3.4-5.0); Alkaline Phosphatase 57 U/L (46-116); Anion Gap 9.7 mmol/L (3-11); BUN 8 mg/dL (7-18); Bilirubin, Total 0.2 mg/dL (0.2-1.0); CO2 24.3 mmol/L (21.0-32.0); CREATININE 0.7 mg/dL (0.55-1.02); Calcium 9.1 mg/dL (8.5-10.1); Chloride 101 mmol/L (98-107); Estimated GFR 123.78 (mL/min/1.73m2); Glucose 81 mg/dL (74-106); Potassium 3.6 mmol/L (3.5-5.1); Sodium 135 mmol/L (136-145); Total Protein 7.3 g/dL (6.4-8.2)
[2022-12-16 10:24] LABS: Hepatitis B Surface Ag Negative (Negative)
[2022-12-16 10:37] LABS: Rubella IgG Ab (UVM) Positive (See Note); Varicella IgG Antibody Positive (See Note)
[2022-12-16 10:59] LABS: HIV-1/2 Ag & Ab Screen Negative (Negative)
[2022-12-16 11:14] LABS: Hepatitis C Ab w Rflx HCV PCR Negative (Negative)
[2022-12-17 20:19] LABS: Syphilis IgG w/Reflex Nonreactive (Nonreactive)
[2022-12-19 16:07] LABS: Buprenorphine Negative ng/mL (Cutoff: 5.0); Norbuprenorphine Negative ng/mL (Cutoff: 2.5)
== END 2022-12-15 16:30 | disposition home or self-care (01) ==
LOC: LBO 16:30
PROVIDERS: PCP Nurse Practitioner Family; Visit Provider Advanced Practice Midwife
DX: Z34.91 Encounter for supervision of normal pregnancy, unspecified, first trimester
CPT/HCPCS: 36415; 80053; 80307; 80348; 82950; 86787; 86803; 86850; 86900; 86901; 87340; 87389; 85025; 86762; 86780; 87086

== ENCOUNTER 2023-01-12 02:50 | Outpatient (CLI) | payer MEDICAID, SELFPAY ==
[2023-01-14 14:27] LABS: AFP 42.1 ng/mL; GA used in risk estimate Dates estimate; IVF Pregnancy No; Initial or repeat testing Initial testing; Insulin dependent diabetes No; Maternal Weight 205 lbs; Number of Fetuses 1; Prev Pregnancy w/NTD No; RECOMMENDED FOLLOW UP None.; Results Summary Normal risk
== END 2023-01-12 02:51 | disposition home or self-care (01) ==
LOC: LBO 02:50
PROVIDERS: PCP Nurse Practitioner Family; Visit Provider Advanced Practice Midwife
DX: Z34.92 Encounter for supervision of normal pregnancy, unspecified, second trimester (principal)
CPT/HCPCS: 36415; 82105

== ENCOUNTER 2023-04-02 04:25 | Outpatient (CLI) | payer MEDICAID, SELFPAY ==
[2023-04-02 10:48] LABS: Glucose,1 Hr (Glucola) 112 mg/dL (80-140)
== END 2023-04-02 04:26 | disposition home or self-care (01) ==
LOC: LBO 04:25
PROVIDERS: Obstetrics & Gynecology; PCP Nurse Practitioner Family; Visit Provider Advanced Practice Midwife
DX: Z34.92 Encounter for supervision of normal pregnancy, unspecified, second trimester (principal)
CPT/HCPCS: 36415; 82950

== ENCOUNTER 2023-05-18 16:37 | Outpatient (CLI) | payer MEDICAID, SELFPAY ==
[2023-05-18 17:21] VITALS: BP 106/53; PULSE 93; TEMP 36.9
[2023-05-18 17:52] VITALS: BP 107/54; PULSE 74
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
--- NOTE | 2023-05-18 19:42 | NUR.NOTE ---
Nursing Note: Report received from Day RN Joyce. Pt alert and oriented X3. Appropriate affect. Lungs CTA bilaterally. Pt denies pain at this time. Abd soft nontender, gravid. Plan is to transfer pt to Hospital of care as planned, [facility]. Lights are dim and pt is relaxed. Category 1 strip with no cxs observed by this RN .Quan from [facility] called and updated with level of care. Quan form [facility] transferred to Supervisory Aide per request.
--- NOTE | 2023-05-18 20:27 | NUR.NOTE ---
Nursing Note:[facility] here to Transfer pt, PCS form missing from packet, MD Emery paged. Plan to fax form once signed. Pt voided 75cc med yellow, clear urine with strong urine odor . VSS, Stable EFM . Pt discharged/transferred to [facility] via ambulance as planned.
--- NOTE | 2023-05-18 20:36 | NUR.NOTE ---
Nursing Note:Orlando VAZQUEZ from [facility] called for report.
[2023-05-18 20:40] VITALS: BP 106/64; PULSE 92; TEMP 36.4
--- NOTE | 2023-05-21 17:36 | PDOC.NST_ITS ---
Date of service: 06/16/23 Time of Service: 17:30 NST Evaluation Reason for NST Reasons for Nonstress Test: LABOR Gestational Age Gestational Age in Weeks and Days: 33 Weeks and 5Days Test and Monitor Explained Test/Monitor Explained: Test Explained Vital Signs Blood Pressure: 106/64 Pulse: 92 Temperature: 97.5 F Urine Results Urine Protein: Positive Urine Ketones: Negative Urine Glucose: Negative Urine Blood: Negative NST Information Date on Monitor: 05/18/23 Time on Monitor: 17:30 Date off Monitor: 05/18/23 Time off Monitor: 20:15 Total Time on Monitor: 165 NST Interventions: None Contraction Frequency: reports q6 NST Evaluation Patient States Movement: Present FHR Baseline: 135 Variability: Moderate 6-25 bpm Accelerations: 15x15 Decelerations: None NST Results: Reactive Note Ultrasound Done: N/A. NST Note Note: See H&P. [place] [facility] [place]. NST Reviewed and Verified by: Corinne Anderson
[2023-05-21 17:38] VITALS: BP 106/64; PULSE 92; TEMP 36.4
== END 2023-05-18 20:44 ==
LOC: BCD 16:37 → OBS 17:19
PROVIDERS: PCP Nurse Practitioner Family; Visit Provider Obstetrics & Gynecology
DX: O47.03 False labor before 37 completed weeks of gestation, third trimester (principal); Z3A.33 33 weeks gestation of pregnancy
CPT/HCPCS: 59025; 87480; 87510; 87660; G0378

== ENCOUNTER 2023-06-04 14:29 | Outpatient (REF) | payer MEDICAID, SELFPAY ==
[2023-06-04 15:24] LABS: *AMPHETAMINES SCREEN URINE Negative (Negative); *BARBITURATES SCREEN URINE Negative (Negative); *BENZODIAZEPINES SCREEN URINE Negative (Negative); Cannabinoids THC Positive (Negative); Cocaine Screen,Urine Negative (Negative); METHADONE URINE SCREEN Negative (Negative); OPIATES URINE SCREEN Negative (Negative)
[2023-06-04 15:28] LABS: Tricyclic Antidepressants Negative (Negative)
== END 2023-06-04 14:30 | disposition home or self-care (01) ==
LOC: LBN 14:29
PROVIDERS: PCP Nurse Practitioner Family; Visit Provider Obstetrics & Gynecology Gynecology
DX: Z34.93 Encounter for supervision of normal pregnancy, unspecified, third trimester (principal); Z36.85 Encounter for antenatal screening for Streptococcus B; Z3A.36 36 weeks gestation of pregnancy
CPT/HCPCS: 80307; 87081

== ENCOUNTER 2023-06-06 09:24 | Outpatient (CLI) | payer MEDICAID, SELFPAY ==
[2023-06-06 10:46] VITALS: BP 112/55; PULSE 76; TEMP 37
[2023-06-06 11:09] VITALS: BP 112/55; PULSE 76
--- NOTE | 2023-06-08 19:10 | W.OBNST ---
Date of service: 06/06/23 Time of Service: 19:10 NST Evaluation Reason for NST Reasons for Nonstress Test: OTHER, SEE COMMENT Reason for NST Other: R/O labor Gestational Age Gestational Age in Weeks and Days: 36 Weeks and 3Days Test and Monitor Explained Test/Monitor Explained: Test Explained, Monitor Explained and Patient Verbalized Understanding Vital Signs Blood Pressure: 112/55 Pulse: 76 Temperature: 98.6 F NST Information Date on Monitor: 06/06/23 Time on Monitor: 10:40 Date off Monitor: 06/06/23 Time off Monitor: 12:15 Total Time on Monitor: 95 NST Interventions: None Contraction Frequency: Irregular Comments: Mild to palpation NST Evaluation Patient States Movement: Present FHR Baseline: 140 Variability: Moderate 6-25 bpm Accelerations: 15x15 Decelerations: None NST Results: Reactive Note Ultrasound Done: N/A. NST Note Note: Patient called to report lower suprapubic pain intermittent for the last 2 to 3 hours. She was concerned about labor contractions. On arrival to the center her cervix was closed posterior 25% effaced vertex presentatio After being monitored for period of time her discomfort stopped. No place of dysuria no flank pain. Patient will follow-up in the office for routinely scheduled weekly visits. NST Reviewed and Verified by: Kimberli Asencio
[2023-06-08 19:12] VITALS: BP 112/55; PULSE 76; TEMP 37
== END 2023-06-06 12:17 | disposition home or self-care (01) ==
LOC: BCD 09:25 → OBS 10:45
PROVIDERS: PCP Nurse Practitioner Family; Visit Provider Obstetrics & Gynecology Gynecology
DX: O47.03 False labor before 37 completed weeks of gestation, third trimester (principal); Z3A.36 36 weeks gestation of pregnancy
CPT/HCPCS: 59025

== ENCOUNTER 2023-08-11 15:50 | Outpatient (REF) | payer MEDICARE, MEDICAID, SELFPAY ==
--- NOTE | 2023-08-11 16:00 | PAPFT_PTH ---
PATIENT: Alexandra Adrian LOC: [facility]#:[id number] AGE/SX: 23/F ROOM: RE08/11/[address]: Kimberli Asencio : 2000 BED: DIS: 08/11/2023 SPEC #: [id number] RECD: 08/11/23 17:56 STATUS: MIRA RAYGOZA #: [id number] JESSICA: 08/11/23 16:[address]: Kimberli Asencio DEPT: [facility] Cytology RECD BY: Cindy Briseno ENTERED: 08/11/23 17:56 SP TYPE: PAPFT OT DR: Rosie Pereira, BLANCA Tissues: 1 - CX/ENDOCX FOR PAP SMEARS Procedures: PAP THIN PREP/UVM Screening Comments: [id number]
== END 2023-08-11 15:51 | disposition home or self-care (01) ==
LOC: LBN 15:50
PROVIDERS: PCP Nurse Practitioner Family; Visit Provider Obstetrics & Gynecology Gynecology
DX: Z12.4 Encounter for screening for malignant neoplasm of cervix (principal)
CPT/HCPCS: 88142

== ENCOUNTER 2023-11-26 01:20 | Outpatient (CLI) | payer MEDICARE, MEDICAID, SELFPAY ==
[2023-11-26 11:22] LABS: Panorama Kit Sent via Fed Ex
[2023-11-26 11:38] LABS: Abs Immature Grans 0.05 10^3/uL (0.0-0.06); Absolute Basophil Count 0.03 10^3/uL (0.0-0.2); Absolute Monocyte Count 0.64 10^3/uL (0.1-0.8); Basophils % 0.3 %; Eosinophils % 1.8 %; HCT 41.6 % (36.0-46.0); HGB 14.5 g/dL (11.2-15.7); Immature Grans % 0.5 %; Lymphocytes % 18.9 %; MCH 29.7 pg (27.0-33.0); MCHC 34.9 % (32.0-36.0); MCV 85 fL (80-95); MPV 12.1 fL (8.0-11.0); Monocytes % 5.9 %; Neutrophils % 72.6 %; Platelet Count 220 10^3/uL (130-400); RBC 4.89 10^6/uL (3.93-5.22); RDW 12.4 % (11.7-14.6); RDW-SD 38.8 fL; WBC 10.82 10^3/uL (4.4-10.8)
[2023-11-26 11:41] LABS: Glucose,1 Hr (Glucola) 93 mg/dL (80-140)
[2023-11-26 11:47] LABS: Absolute Eosinophil Count 0.19 10^3/uL (0.0-0.7); Absolute Lymphocyte Count 2.04 10^3/uL (1.2-3.4); Absolute Neutrophil Count 7.86 10^3/uL (1.2-6.7)
[2023-11-26 19:08] LABS: Hepatitis B Surface Ag Negative (Negative)
[2023-11-26 19:36] LABS: HIV-1/2 Ag & Ab Screen Negative (Negative)
[2023-11-26 19:42] LABS: Hepatitis C Ab w Rflx HCV PCR Negative (Negative)
[2023-11-29 12:12] LABS: Rubella IgG Ab (UVM) Positive (See Note); Varicella IgG Antibody Negative (See Note)
[2023-11-29 20:43] LABS: Syphilis IgG w/Reflex Nonreactive (Nonreactive)
== END 2023-11-26 01:21 | disposition home or self-care (01) ==
LOC: LBO 01:20
PROVIDERS: PCP Nurse Practitioner Family; Visit Provider Advanced Practice Midwife
DX: Z34.91 Encounter for supervision of normal pregnancy, unspecified, first trimester (principal)
CPT/HCPCS: 36415; 82950; 86787; 86803; 86850; 86900; 86901; 87340; 87389; 85025; 86762; 86780

== ENCOUNTER 2023-11-26 11:13 | Outpatient (REF) | payer MEDICARE, MEDICAID, SELFPAY ==
[2023-11-26 13:24] LABS: *AMPHETAMINES SCREEN URINE Negative (Negative); *BARBITURATES SCREEN URINE Negative (Negative); *BENZODIAZEPINES SCREEN URINE Negative (Negative); Cannabinoids THC Positive (Negative); Cocaine Screen,Urine Negative (Negative); METHADONE URINE SCREEN Negative (Negative); OPIATES URINE SCREEN Negative (Negative)
[2023-11-26 13:25] LABS: Tricyclic Antidepressants Negative (Negative)
[2023-11-29 10:17] LABS: Fentanyl Scr w/Rfx Confirm Negative ng/mL (<1)
[2023-11-29 12:42] LABS: Chlamydia Result Negative (Negative); GC Result Negative (Negative)
[2023-12-01 12:07] LABS: Buprenorphine Negative ng/mL (Cutoff: 5.0); Norbuprenorphine Negative ng/mL (Cutoff: 2.5)
== END 2023-11-26 11:14 | disposition home or self-care (01) ==
LOC: LBN 11:13
PROVIDERS: PCP Nurse Practitioner Family; Visit Provider Advanced Practice Midwife
DX: Z34.91 Encounter for supervision of normal pregnancy, unspecified, first trimester (principal); Z3A.11 11 weeks gestation of pregnancy
CPT/HCPCS: 80307; 80348; 87491; 87591; 87086